=== PATIENT | female | born 1955 | race Caucasian/White ===

== ENCOUNTER 2020-08-16 11:16 | Day surgery (SDC) | payer MEDICARE, MEDICAID ==
[2020-08-16] VITALS (12 sets, daily range): BP systolic 112–143; BP diastolic 53–80
[~2020-08-16] VITALS: Ht 157.5 cm; Wt 96.7 kg
[2020-08-16] MEDS ORDERED: lasix (11:22)
[2020-08-16] MEDS ORDERED: CARV6.253 PO (11:23)
[2020-08-16] MEDS ORDERED: HYDR12.55 PO (11:24)
[2020-08-16] MEDS ORDERED: INSU100V9 SQ (11:25)
[2020-08-16] MEDS ORDERED: TRAM50TA2 PO (11:27)
[2020-08-16] MEDS ORDERED: GABA-530 PO (11:27)
[2020-08-16] MEDS ORDERED: INSU100C4 SQ (11:28)
[2020-08-16] MEDS ORDERED: wellbutrin (11:28)
[2020-08-16] MEDS ORDERED: lisinopril (11:29)
[2020-08-16] MEDS ORDERED: metformin (11:29)
[2020-08-16] MEDS ORDERED: synthroid (11:31)
[2020-08-16] MEDS ORDERED: [UNRECOGNIZED DRUG - OTHER] (11:31)
[2020-08-16] MEDS ORDERED: midazolam 2 mg/2 ml injection ONE (11:33)
[2020-08-16] MEDS ORDERED: fentaNYL/PF 50MCG/1 ML 2ML syringe ONE (11:33)
[2020-08-16] MEDS ORDERED: iohexol 350MG/ML 100ml bottle IV ONE (11:34)
[2020-08-16] MEDS ORDERED: iohexol 350 MG/ML 50ML vial IV ONE (11:34)
[2020-08-16] MEDS ORDERED: LIDOcaine 1% (10mg/ml)w/preservative injection 20ml MDV ONE (11:34)
[2020-08-16] MEDS ORDERED: BUPR150T6 PO (11:42)
[2020-08-16] MEDS ORDERED: METF-950 PO (11:42)
[2020-08-16] MEDS ORDERED: INSU3INS2 (11:42)
[2020-08-16] MEDS ORDERED: FURO20TA4 PO (11:42)
[2020-08-16] MEDS ORDERED: LEVO300T6 PO (11:42)
[2020-08-16] MEDS ORDERED: LISI-600 PO (11:42)
[2020-08-16] MEDS ORDERED: NITR0.4T48 SL (11:42)
[2020-08-16] MEDS ORDERED: POTA8TAB3 PO (11:42)
[2020-08-16] MEDS ORDERED: insulin Lispro (HumaLOG) vial - multi-dose SQ SCH (11:45)
[2020-08-16] MEDS ORDERED: glucagon, human recombinant 1mg kit SUBCUT PRN (11:45)
[2020-08-16] MEDS ORDERED: nitroGLYCERIN 0.4mg SUBLingual tab SL PRN (11:45)
[2020-08-16] MEDS ORDERED: normal saline 1,000 ML IV SCH (11:45)
[2020-08-16] MEDS ORDERED: MESSAGE TO PHARMACY PO ONE (11:45)
[2020-08-16] MEDS ORDERED: dextrose ORAL solution 15 GM/59 ML bottle PO PRN ×2 (11:45)
[2020-08-16] MEDS ORDERED: dextrose 50%-water 50ml dispensing syringe IV PRN ×2 (11:45)
[2020-08-16] MEDS ORDERED: LORazepam 0.5 MG tablet PO PRN (11:45)
[2020-08-16] MEDS ORDERED: diphenhydrAMINE 25mg capsule PO PRN (11:45)
[2020-08-16] MEDS ORDERED: diphenhydrAMINE 50 mg/ml inj ONE (12:13)
[2020-08-16] MEDS ORDERED: OXAZEpam 15mg capsule PO PRN (13:40)
[2020-08-16] MEDS ORDERED: proCHLORperazine 10 MG/2 ml inj IV PRN (13:40)
[2020-08-16] MEDS ORDERED: ondansetron/PF 4mg/2ml inj IV PRN (13:40)
--- NOTE | 2020-08-16 17:51 | NUR ---
PT'S DEXCOM INDICATES BLOOD SUGAR 214 PRIOR TO PROCEDURE AND NOW IS 247. PROTOCOL TOOL CORRECTIONAL STATES 5 UNITS HUMALOG FOR LEVEL 2. 5 UNITS GIVEN. PT STATES THAT IS WHAT SHE WOULD GIVE HERSELF IF SHE WERE AT HOME.,
[2020-08-16] MEDS ORDERED: insulin glargine (Lantus) pen - multi-dose SQ SCH (21:00)
== END 2020-08-16 19:00 | disposition home or self-care (01) ==
LOC: SSTAY O 11:16
PROVIDERS: ATTEND Internal Medicine Cardiovascular Disease
DX: R94.39 Abnormal result of other cardiovascular function study (principal); I25.10 Atherosclerotic heart disease of native coronary artery without angina pectoris; I10 Essential (primary) hypertension; E11.9 Type 2 diabetes mellitus without complications; I48.0 Paroxysmal atrial fibrillation; G47.33 Obstructive sleep apnea (adult) (pediatric); E78.5 Hyperlipidemia, unspecified; E03.9 Hypothyroidism, unspecified; J44.9 Chronic obstructive pulmonary disease, unspecified; E66.01 Morbid (severe) obesity due to excess calories; Z68.39 Body mass index [BMI] 39.0-39.9, adult; Z86.73 Personal history of transient ischemic attack (TIA), and cerebral infarction without residual deficits; Z88.5 Allergy status to narcotic agent; Z87.891 Personal history of nicotine dependence
CPT/HCPCS: 93005; 93458; 99152; 99153; C1760; C1769; J1200; J1644; J1815; J2001; J2250; J3010; J7030; Q9967; A4620; A6258